=== PATIENT | male | born 1935 | race Hispanic/Latino ===

== ENCOUNTER 2016-09-20 14:56 | Emergency (ER) | payer MEDICARE ==
[2016-09-20 15:44] VITALS: BP 141/77; PULSE 64; RESP 16; TEMP 98; O2SAT 100
--- NOTE | 2016-09-20 16:29 | ED PDOC ---
Lower Extremity Pain/Injury Time Seen by Provider: 09/20/16 16:02 Chief Complaint (Nursing): Lower Extremity Problem/Injury Chief Complaint (Provider): Right leg pain History Per: Patient History/Exam Limitations: no limitations Onset/Duration Of Symptoms: Days (x1) Current Symptoms Are (Timing): Still Present Severity: Mild Additional Complaint(s): Patient is a 81 year old male presenting to the ED complain of right leg pain x1 day. Pain is reported as pressure-like to the right thigh. Patient is ambulatory. Patient states he may have injured himself at work. Patient did not take any medication for the pain. PMD: Jaskaran Redmond Past Medical History Reviewed: Historical Data, Nursing Documentation, Vital Signs Vital Signs: Last Vital Signs Temp 98.0 F 09/20/16 15:37 Pulse 64 09/20/16 15:37 Resp 16 09/20/16 15:37 BP 141/77 09/20/16 15:37 Pulse Ox 100 09/20/16 15:37 - Medical History PMH: COPD - Surgical History Surgical History: Tonsillectomy - Family History Family History: States: No Known Family Hx - Immunization History Hx Influenza Vaccination: Yes Hx Pneumococcal Vaccination: Yes - Home Medications Home Medications: Ambulatory Orders Medication Instructions Recorded Clindamycin [Cleocin] 300 mg PO TID #30 cap 08/05/15 Naproxen [Naprosyn] 500 mg PO Q12H #20 tab 08/05/15 Naproxen [Naprosyn] 500 mg PO Q12H #20 tablet 09/20/16 - Allergies Allergies/Adverse Reactions: Allergies Allergy/AdvReac Type Severity Reaction Status Date / Time No Known Allergies Allergy Verified 09/20/16 15:37 Review of Systems ROS Statement: Except As Marked, All Systems Reviewed And Found Negative Constitutional: Negative for: Fever Musculoskeletal: Positive for: Leg Pain (rt) Physical Exam - Reviewed Nursing Documentation Reviewed: Yes Vital Signs Reviewed: Yes - Physical Exam Appears: Positive for: Well, Non-toxic, No Acute Distress Head Exam: Positive for: ATRAUMATIC, NORMAL INSPECTION, NORMOCEPHALIC Skin: Positive for: Normal Color, Warm, DRY Eye Exam: Positive for: Normal appearance, EOMI Neck: Positive for: Normal, Painless ROM Extremity: Positive for: Normal ROM, Tenderness (mild tenderness right anterior thigh). Negative for: Deformity, Swelling Neurologic/Psych: Positive for: Alert, Oriented - ECG O2 Sat by Pulse Oximetry: 100 (RA) Pulse Ox Interpretation: Normal Medical Decision Making Medical Decision Making: Time: 16:05 Impression: Right leg pain Plan: Naproxen 500 mg PO Scribe Attestation: Documented by Mariajose Herman acting as a scribe for KARMEN Aldana. Provider Attestation: All medical record entries made by the Scribe were at my direction and personally dictated by me. I have reviewed the chart and agree that the record accurately reflects my personal performance of the history, physical exam, medical decision making, and the department course for this patient. I have also personally directed, reviewed, and agree with the discharge instructions and disposition. Disposition - Clinical Impression Clinical Impression: Muscle strain - Patient ED Disposition Is Patient to be Admitted: No Counseled Patient/Family Regarding: Diagnosis, Need For Followup, Rx Given - Disposition [facility]errals: [facility] [Outside] Disposition: Routine/Home Disposition Time: 18:09 Condition: GOOD Prescriptions: Naproxen [Naprosyn] 500 mg PO Q12H #20 tablet Instructions: Muscle Strain (ED)
[2016-09-20] MEDS ORDERED: Naproxen 500 MG TAB PO STA (16:35)
[2016-09-20] MEDS ORDERED: Naproxen 500 MG TAB PO ONE (17:43)
--- NOTE | 2016-09-20 17:53 | US ---
PROCEDURE: Right lower extremity venous duplex Doppler. HISTORY: right leg pain, weakness COMPARISON: None available. TECHNIQUE: Common femoral, superficial femoral, popliteal and posterior tibial veins were evaluated. Flow was assessed with color Doppler, compressibility, assessment of phasic flow and augmentation response. FINDINGS: COMMON FEMORAL VEIN: There is normal direction of flow, spectral waveform and compressibility. SUPERFICIAL FEMORAL VEIN: There is normal direction of flow, spectral waveform and compressibility. POPLITEAL VEIN: There is normal direction of flow, spectral waveform and compressibility. POSTERIOR TIBIAL VEIN: There is normal direction of flow, spectral waveform and compressibility. OTHER FINDINGS: None. IMPRESSION: No evidence of deep venous thrombosis in the right lower extremity.
--- NOTE | 2016-09-22 08:27 | US ---
PROCEDURE: Duplex ultrasound of the bilateral lower extremity arteries. HISTORY: right leg pain, weakness COMPARISON: None available. TECHNIQUE: Grayscale and duplex Doppler evaluation of the bilateral common femoral, superficial femoral, popliteal, posterior tibial and dorsalis pedis arteries was performed.. FINDINGS: RIGHT LOWER EXTREMITY: RIGHT COMMON FEMORAL ARTERY: Patent with triphasic doppler waveform. Maximal flow velocity of 125.3 cm/s. RIGHT SUPERFICIAL FEMORAL ARTERY: Patent with triphasic doppler waveform. Maximal flow velocity of 79.1 cm/s. RIGHT POPLITEAL ARTERY:Patent with triphasic doppler waveform. Maximal flow velocity of 73.6 cm/s. RIGHT POSTERIOR TIBIAL ARTERY: Patent with biphasic doppler waveform.Maximal flow velocity of 47.2 cm/s. RIGHT ANTERIOR TIBIAL ARTERY: Patent with biphasic doppler waveform.Maximal flow velocity of 82.3 cm/s. RIGHT DORSALIS PEDIS ARTERY: Patent with biphasic doppler waveform.Maximal flow velocity of 79 cm/s. LEFT LOWER EXTREMITY: Not imaged. OTHER FINDINGS: Diffuse heterogeneous and calcific plaque in the visualized arteries. IMPRESSION: No hemodynamically significant stenosis or occlusion.
== END 2016-09-20 18:20 | disposition home or self-care (01) ==
LOC: H.ER 14:56
DX: M79.604 Pain in right leg (principal); R53.1 Weakness